=== PATIENT | female | born 1945 | race Two or more races ===

== ENCOUNTER 2017-04-05 06:25 | Emergency (ER) | payer MEDICARE, OTHER ==
[~2017-04-05] VITALS: Ht 147.3 cm; Wt 63.5 kg
[2017-04-05] MEDS ORDERED: UNOBMED (06:40)
[2017-04-05 06:52] VITALS: BP 127/78
--- NOTE | 2017-04-05 06:58 | Emergency Room Report ---
History of Present Illness General Chief Complaint: Vomiting Source: Patient Present Illness HPI This patient presents from home. She states that around 5:30 this morning she was looking at her cell phone and suddenly felt lightheaded and her vision went dark and she fell to the floor. She believes there was loss of consciousness. She states that she also became very sweaty at that time. She is developed nausea multiple episodes of vomiting and epigastric pain. She did have a small amount of diarrhea. She states she also feels dizziness. She states it is both lightheadedness and a spinning sensation. She has a lot of pain in her upper abdomen. She was in her normal state of health yesterday. She denies chest pain or shortness of breath. She has no other complaints. Allergies: Coded Allergies: No Known Allergies (Unverified , 04/05/17) Patient History Past Medical History: see triage record, HTN Past Surgical History: none Social History: Denies: alcohol use, drug use, smoking Last Menstrual Period: n/a Now: No Reviewed Nursing Documentation: PMH: Agreed, PSxH: Agreed Nursing Documentation-PMH Past Medical History: No History, Except For Hx Cardiac Problems: Yes Hx Hypertension: Yes Review of Systems All Other Systems: negative except mentioned in HPI Physical Exam Vital Signs Date Time Temp Pulse Resp B/P Pulse Ox O2 Delivery O2 Flow Rate FiO2 04/05/17 06:27 95.5 55 24 127/78 100 Room Air Sp02 EP Interpretation: reviewed, normal General Appearance: no apparent distress, alert, GCS 15, non-toxic Head: normocephalic, atraumatic Eyes: bilateral eye PERRL, bilateral eye normal inspection ENT: hearing grossly normal, normal pharynx, no angioedema, normal voice Neck: full range of motion, supple/symm/no masses Respiratory: chest non-tender, lungs clear, normal breath sounds, speaking full sentences Cardiovascular #1: regular rate, rhythm, no edema Gastrointestinal: normal bowel sounds, soft, non-distended, no guarding, no rebound, tenderness - TTP in the upper abdomen and epigastrium Rectal: deferred Musculoskeletal: back normal, normal range of motion, non-tender Neurologic: alert, oriented x3, responsive, motor strength/tone normal, sensory intact, speech normal Psychiatric: judgement/insight normal, memory normal, mood/affect normal, no suicidal/homicidal ideation Skin: normal color, no rash, warm/dry, well hydrated Medical Decision Making Diagnostic Impression: Primary Impression: Syncope and collapse Additional Impressions: Bradycardia Dehydration Azotemia ER Course This patient has a clinical presentation consistent with syncope, gastroenteritis and dehydration. The patient is noted to be profoundly bradycardic. She on telemetry he was dropping into the high 30s. EKG shows bradycardia of 42 beats per minute. This is a sinus bradycardia. The patient did take her blood pressure medication this morning. Possibly in the setting of acute kidney injury and dehydration this is a medication fact. Regardless, the patient had a syncopal episode and has profound bradycardia and therefore I feel she should be admitted for further monitoring and evaluation by cardiology. She is also given aggressive IV fluid resuscitation and her bradycardia improved to 60's. Given this patient's age and her tenderness to palpation on physical exam, I felt I should obtain a CT of the abdomen and pelvis which showed no acute findings. I do not suspect cholecystitis, pancreatitis, appendicitis or diverticulitis based on history and physical and laboratory workup and CT imaging. The patient was transferred to [facility] at the request of her insurance company. She is stable for transfer. Labs Test 04/05/17 07:00 04/05/17 08:43 White Blood Count 5.5 K/UL (4.8-10.8) Red Blood Count 3.74 M/UL (4.20-5.40) Hemoglobin 11.3 G/DL (12.0-16.0) Hematocrit 34.5 % (37.0-47.0) Mean Corpuscular Volume 92 FL (80-99) Mean Corpuscular Hemoglobin 30.2 PG (27.0-31.0) Mean Corpuscular Hemoglobin Concent 32.7 G/DL (32.0-36.0) Red Cell Distribution Width 12.4 % (11.6-14.8) Platelet Count 182 K/UL (150-450) Mean Platelet Volume 7.5 FL (6.5-10.1) Neutrophils (%) (Auto) 68.5 % (45.0-75.0) Lymphocytes (%) (Auto) 25.5 % (20.0-45.0) Monocytes (%) (Auto) 5.5 % (1.0-10.0) Eosinophils (%) (Auto) 0.0 % (0.0-3.0) Basophils (%) (Auto) 0.5 % (0.0-2.0) Sodium Level 143 mEQ/L (135-145) Potassium Level 3.8 mEQ/L (3.4-4.9) Chloride Level 105 mEQ/L (98-107) Carbon Dioxide Level 22 mEQ/L (20-30) Anion Gap 16 (5-15) Blood Urea Nitrogen 25 mg/dL (7-23) Creatinine 1.3 mg/dL (0.5-0.9) Estimat Glomerular Filtration Rate mL/min (>60) Glucose Level 116 mg/dL (74-106) Calcium Level 9.8 mg/dL (8.6-10.2) Total Bilirubin 0.4 mg/dL (0.0-1.2) Aspartate Amino Transf (AST/SGOT) 18 U/L (5-40) Alanine Aminotransferase (ALT/SGPT) 9 U/L (3-33) Alkaline Phosphatase 58 U/L (35-104) Troponin I < 0.30 ng/mL (<=0.30) Total Protein 7.3 g/dL (6.6-8.7) Albumin 4.4 g/dL (3.5-5.2) Globulin 2.9 g/dL Albumin/Globulin Ratio 1.5 (1.0-2.7) Lipase 35 U/L (< 60) Urine Color Pale yellow Urine Appearance Clear Urine pH 8 (4.5-8.0) Urine Specific [place] 1.010 (1.005-1.035) Urine Protein Negative (NEGATIVE) Urine Glucose (UA) Negative (NEGATIVE) Urine Ketones Negative (NEGATIVE) Urine Occult Blood 1+ (NEGATIVE) Urine Nitrite Negative (NEGATIVE) Urine Bilirubin Negative (NEGATIVE) Urine Urobilinogen Normal MG/DL (0.0-1.0) Urine Leukocyte Esterase 2+ (NEGATIVE) Urine RBC 0-2 /HPF (0 - 2) Urine WBC 2-4 /HPF (0 - 2) Urine Squamous Epithelial Cells Few /LPF (NONE/OCC) Urine Bacteria Few /HPF (NONE) EKG Diagnostic Results Rate: bradycardiac Rhythm: other ST Segments: no acute changes Other Impression S.bradycardia Rhythm Strip Diag. Results EP Interpretation: yes Rate: 40's Rhythm: no PVC's, no ectopy, other Other Impression S.bradycardia CT/MRI/US Diagnostic Results CT/MRI/US Diagnostic Results : Imaging Test Ordered: CT abd/pelvis Impression No acute findings. See official report. Last Vital Signs Date Time Temp Pulse Resp B/P Pulse Ox O2 Delivery O2 Flow Rate FiO2 04/05/17 06:52 95.5 24 127/78 100 Room Air 04/05/17 06:27 55 Disposition: [facility] Condition: Stable JORDAN DAVE D.O. Apr 05, 2017 06:57
[2017-04-05 07:09] VITALS: BP 148/65
[2017-04-05 07:20] LABS: BASOPHILS % (AUTO) 0.5 % (0.0-2.0); LYMPHOCYTES % (AUTO) 25.5 % (20.0-45.0); MEAN CORPUSCULAR HEMOGLOBIN 30.2 PG (27.0-31.0); MEAN CORPUSCULAR HGB CONC 32.7 G/DL (32.0-36.0); MEAN CORPUSCULAR VOLUME 92 FL (80-99); MEAN PLATELET VOLUME 7.5 FL (6.5-10.1); MONOCYTES % (AUTO) 5.5 % (1.0-10.0); NEUTROPHILS % (AUTO) 68.5 % (45.0-75.0); PLATELET COUNT 182 K/UL (150-450); RED BLOOD COUNT 3.74 M/UL (4.20-5.40); RED CELL DISTRIBUTION WIDTH 12.4 % (11.6-14.8); WHITE BLOOD COUNT 5.5 K/UL (4.8-10.8)
[2017-04-05 07:31] LABS: TROPONIN I < 0.30 ng/mL (<=0.30)
[2017-04-05 07:33] LABS: ALANINE AMINOTRANSFERASE 9 U/L (3-33); ALBUMIN/GLOBULIN RATIO 1.5 (1.0-2.7); ANION GAP 16 (5-15); ASPARTATE AMINO TRANSFERASE 18 U/L (5-40); CALCIUM 9.8 mg/dL (8.6-10.2); CARBON DIOXIDE 22 mEQ/L (20-30); CHLORIDE 105 mEQ/L (98-107); CREATININE 1.3 mg/dL (0.5-0.9); HEMOLYSIS 6; LIPASE 35 U/L (< 60); POTASSIUM 3.8 mEQ/L (3.4-4.9); SODIUM 143 mEQ/L (135-145); TOTAL PROTEIN 7.3 g/dL (6.6-8.7)
[2017-04-05 08:51] VITALS: BP 134/67
[2017-04-05 08:53] LABS: APPEARANCE,URINE CLEAR; KETONES,URINE NEGATIVE (NEGATIVE); LEUKOCYTE ESTERASE ,URINE 2+ (NEGATIVE); NITRITE,URINE NEGATIVE (NEGATIVE); PH,URINE 8 (4.5-8.0); PROTEIN,URINE NEGATIVE (NEGATIVE); UROBILINOGEN,URINE NORMAL MG/DL (0.0-1.0)
[2017-04-05 09:05] LABS: BACTERIA,URINE FEW /HPF; RBC,URINE 0-2 /HPF (0 - 2); SQUAMOUS EPITHELIAL CELL,UR FEW /LPF (NONE/OCC)
[2017-04-05 09:30] VITALS: BP 114/88
--- NOTE | 2017-04-05 10:06 | Diagnostic Imaging Report ---
Clinical Indication: 71-year-old female with nausea vomiting and epigastric pain Technique: No oral contrast utilized, per emergency room physician request IV administration nonionic contrast. Venous phase spiral acquisition obtained through the abdomen and pelvis. Multiplanar reconstructions were generated. Total dose length product 895 mGycm. CTDIvol(s) 18 mGy. Dose reduction achieved using automated exposure control Comparison: None Findings: The appendix is normal. No evidence of diverticulosis or diverticulitis. No small bowel distention. No free or loculated intraperitoneal air or fluid is evident. There is suggestion of a small distal esophageal hiatal hernia. The stomach and duodenum are unremarkable. The liver demonstrates multiple subcentimeter low-attenuation lesions which are too small to characterize, as well as a cyst in segment 4A. There is prominent periportal fat. The gallbladder, bile ducts, pancreas, spleen, adrenals are unremarkable. The right kidney demonstrates a 2.4 cm upper pole cyst. Kidneys demonstrate subcentimeter low-attenuation lesions which are too small to characterize. No renal or ureteral calculi, hydronephrosis, or hydroureter. No retroperitoneal or mesenteric mass or adenopathy. No pelvic mass or adenopathy. Normal uterus and adnexal structures. The included lung bases demonstrate posterior dependent atelectasis. The heart is borderline enlarged. The bones demonstrate degenerative spondylosis changes. Impression: No acute abnormality Borderline cardiomegaly Posterior dependent pulmonary atelectatic changes Incidental finding of hepatic and renal cysts. Hepatic and renal subcentimeter low-attenuation lesions are too small to characterize, most likely benign simple cysts. No further followup necessary Incidental findings of degenerative spondylosis, prominent periportal fat, small hiatal hernia The CT scanner at [facility] is accredited by the [employer] and the scans are performed using protocols designed to limit radiation exposure to as low as reasonably achievable to attain images of sufficient resolution adequate for diagnostic evaluation.
[2017-04-05] MEDS ORDERED: GABAPENTIN300 MG ORAL (10:07)
[2017-04-05] MEDS ORDERED: LORATADINE10 M1 PO (10:07)
[2017-04-05] MEDS ORDERED: ASPIR 8181 MG ORAL (10:07)
[2017-04-05] MEDS ORDERED: ZOSTAVAX V19400 UNIT BC (10:09)
[2017-04-05] MEDS ORDERED: HYDROCHLOROTHIA25 MG ORAL (10:09)
[2017-04-05] MEDS ORDERED: LOSARTAN POTASS50 MG ORAL (10:09)
[2017-04-05] MEDS ORDERED: OYSTER SHELL 51 EAC1 PO (10:10)
[2017-04-05] MEDS ORDERED: NAPROXEN500 M2 ORAL (10:10)
[2017-04-05] MEDS ORDERED: VITAMIN D250000 UNI1 ORAL (10:10)
[2017-04-05] MEDS ORDERED: FOSAMAX70 MG ORAL (10:10)
[2017-04-05 11:01] VITALS: BP 138/67
[2017-04-05 11:02] VITALS: BP 138/67
--- NOTE | 2017-04-05 16:02 | Cardiology Report ---
APPROVED REPORT EKG Measurement Heart [id number] Marked sinus bradycardia Abnormal ECG
== END 2017-04-05 11:19 | disposition short-term general hospital (02) ==
LOC: EDBD 06:25 → EMR 06:40
DX: R55 Syncope and collapse (principal); R00.1 Bradycardia, unspecified; E86.0 Dehydration; R79.89 Other specified abnormal findings of blood chemistry; I10 Essential (primary) hypertension; N28.1 Cyst of kidney, acquired; K76.89 Other specified diseases of liver
CPT/HCPCS: 36415; 74177; 80053; 81003; 83690; 84484; 85025; 93005; 96361; 96374; 99285; Q9967; 96360